=== PATIENT | female | born 1995 | race Hispanic/Latino ===

== ENCOUNTER 2018-08-04 13:11 | Inpatient (IN) | payer OTHER, MEDICAID | END 2018-08-08 14:50 | disposition home or self-care (01) | LOC: LDH 13:11 → WSH 08-05 16:40 | PROC: 10E0XZZ Delivery of Products of Conception, External Approach (ICD-10-PCS; principal; 2018-08-05 14:04) | DX: O62.2 Other uterine inertia (principal); Z68.42 Body mass index [BMI] 45.0-49.9, adult; E66.9 Obesity, unspecified; Z37.0 Single live birth; O69.81X0 Labor and delivery complicated by cord around neck, without compression, not applicable or unspecified; O99.214 Obesity complicating childbirth ==